=== PATIENT | female | born 1995 ===

== ENCOUNTER → 2020-03-24 10:24 | Outpatient (BNVA) | payer BC, SELFPAY | PROVIDERS: PCP Internal Medicine Medical Oncology; Visit Provider Physician Assistant | DX: K21.9 Gastro-esophageal reflux disease without esophagitis (principal); G43.909 Migraine, unspecified, not intractable, without status migrainosus; Z79.899 Other long term (current) drug therapy | CPT/HCPCS: 99213 ==

== ENCOUNTER 2020-03-29 10:04 | Outpatient (REF) | payer BC, SELFPAY ==
--- NOTE | 2020-03-29 10:09 | FL_ITS ---
EXAMINATION: FL BARIUM SWALLOW CLINICAL INFORMATION: Gastroesophageal reflux disease without esophagitis. Patient also notes dry heaving. No difficulty with eating. COMPARISON: None TECHNIQUE: Barium swallow examination is performed using fluoroscopic evaluation in addition to multiple fluoroscopic spot views. The patient is imaged both upright and prone and using both thick and thin sulfate along with effervescent granules. Fluoroscopy time: 1.0 minutes DAP: 1.362 Gycm2 Images: 34 FINDINGS: Swallowing function is normal and there is no aspiration. The cervical esophagus has no web or diverticulum or stricture. The cervical thoracic junction appears normal. The thoracic esophagus shows normal motility with no obstruction, stricture, or ulceration. There is no hiatal hernia or reflux seen despite use of provocative maneuvers (prone Valsalva and water siphon test, respectively). A cursory view of the upper abdomen shows no gastric outlet obstruction. FL/FL barium swallow IMPRESSION: Normal study.
== END 2020-03-29 10:05 | disposition home or self-care (01) ==
LOC: HO.XRAY 10:04
PROVIDERS: Visit Provider Physician Assistant
DX: K21.9 Gastro-esophageal reflux disease without esophagitis (principal)
CPT/HCPCS: 74220

== ENCOUNTER → 2020-07-29 11:11 | Outpatient (BNVA) | payer BC, SELFPAY | PROVIDERS: PCP Internal Medicine Medical Oncology; Visit Provider Physician Assistant ==

== ENCOUNTER → 2020-10-06 10:34 | Outpatient (BNVA) | payer BC, SELFPAY | PROVIDERS: PCP Internal Medicine Medical Oncology; Visit Provider Physician Assistant ==